=== PATIENT | female | born 1985 | race Caucasian/White ===

== ENCOUNTER 2017-11-21 16:54 | Emergency (ER) | payer BC ==
[~2017-11-21] VITALS: Ht 147.3 cm; Wt 92.1 kg
[2017-11-21 16:59] VITALS: BP 132/76
--- NOTE | 2017-11-21 17:04 | NUR ---
TO LOBBY, A/W ZAHIRA RAI NOTED
--- NOTE | 2017-11-21 19:25 | NUR ---
TO ER OF3
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
[2017-11-21 21:38] VITALS: BP 129/82
--- NOTE | 2017-11-21 21:38 | NUR ---
Patient discharged with v/s stable. Written and verbal after care instructions given and explained. Patient alert, oriented and verbalized understanding of instructions. Ambulatory with steady gait. All questions addressed prior to discharge. ID band removed. Patient advised to follow up with PMD. Rx of IBUPROFEN 600MG given. Patient educated on indication of medication including possible reaction and side effects. Opportunity to ask questions provided and answered.
== END 2017-11-21 21:38 | disposition home or self-care (01) ==
LOC: MED 16:54
DX: M25.531 Pain in right wrist (principal); M25.511 Pain in right shoulder; F41.9 Anxiety disorder, unspecified; V49.40XA Driver injured in collision with unspecified motor vehicles in traffic accident, initial encounter; Y93.89 Activity, other specified; Y92.89 Other specified places as the place of occurrence of the external cause; Y99.8 Other external cause status
CPT/HCPCS: 73030; 73110; 99284